=== PATIENT | female | born 1945 | race Caucasian/White ===

== ENCOUNTER 2017-07-14 13:21 | Outpatient (CLI) | payer MEDICARE ==
--- NOTE | 2017-07-14 14:21 | MMO ---
BILATERAL SCREENING MAMMOGRAM: HISTORY: A 71-year-old female for screening mammography. COMPARISON: 05/24/16, 05/15/15, 04/20/14. FINDINGS: Bilateral MLO and CC views of the breasts show scattered fibroglandular breast tissue. Architectura l distortion and coarse calcifications are seen in the left breast from a prior surgery. Vascular c alcifications are seen bilaterally. A benign-appearing calcification is also seen in the right [address]. There is no evidence of suspicious mass, suspicious clustered microcalcifications, or area of n ew architectural distortion. Interpretation of this mammogram is performed with the assistance of computer-aided detection. IMPRESSION: BI-RADS category 2 - benign findings. Annual screening mammography is recommended. POS: [facility]
== END 2017-07-14 13:22 | disposition home or self-care (01) ==
LOC: MAMMO 13:21
PROVIDERS: ATTEND Family Medicine
DX: Z12.31 Encounter for screening mammogram for malignant neoplasm of breast (principal)
CPT/HCPCS: 77067; G0202

== ENCOUNTER 2018-05-14 08:34 | Outpatient (CLI) | payer MEDICARE | END 2018-05-14 08:35 | disposition home or self-care (01) | LOC: BICMRI 08:34 | PROVIDERS: ATTEND Psychiatry & Neurology Neurology | DX: G50.0 Trigeminal neuralgia (principal); G93.89 Other specified disorders of brain | CPT/HCPCS: 70551 ==

== ENCOUNTER 2018-07-15 09:49 | Outpatient (CLI) | payer MEDICARE | END 2018-07-15 09:50 | disposition home or self-care (01) | LOC: BICMAMMO 09:49 | PROVIDERS: ATTEND Family Medicine | DX: Z12.31 Encounter for screening mammogram for malignant neoplasm of breast (principal); Z85.3 Personal history of malignant neoplasm of breast; Z80.3 Family history of malignant neoplasm of breast | CPT/HCPCS: 77063; 77067 ==

== ENCOUNTER 2018-08-31 10:47 | Outpatient (CLI) | payer MEDICARE ==
[2018-08-31 12:44] LABS: #Basophils 0.1 thou/uL (0.0-0.2); #Eosinphils 0.1 thou/uL (0.0-0.7); #Lymphocytes 2.1 thou/uL (1.20-3.40); #Monocytes 0.8 thou/uL (0.11-0.59); #Neutrophils 5.9 thou/uL (1.40-6.50); %Basophils 0.8 % (0.0-1.0); %Eosinophils 0.7 % (0.0-10.0); %Lymphocytes 23.6 % (21.0-51.0); %Monocytes 9.2 % (0.0-10.0); %Neutrophils 65.7 % (42.0-75.0); Hemoglobin 14.5 g/dL (12.0-16.0); Mean Corpuscular HGB CONC 32.5 g/dL (32.0-36.0); Mean Corpuscular Hemoglobin 30.3 pg (27.0-31.0); Mean Corpuscular Volume 93.4 fL (78.0-98.0); Mean Platelet Volume 7.5 fL (7.4-10.4); Platelet Count 279 thou/uL (130-400); RBC Distribution Width 12.5 % (11.5-14.5); Red Blood Cell (RBC) Count 4.78 mill/uL (4.20-5.40); White Blood Cell (WBC) Count 8.9 thou/uL (4.8-10.8)
[2018-08-31 13:30] LABS: Anion Gap 17 mmol/L (10-20); BUN (Urea Nitrogen) 17 mg/dL (9.8-20.1); Calc. Creatinine Clearance 0 mL/min (70-130); Calcium 9.3 mg/dL (7.8-10.44); Carbon Dioxide 21 mmol/L (23-31); Chloride 104 mmol/L (98-107); Estimated GFR-MDRD 69; Glucose 99 mg/dL (83-110); Potassium 4.1 mmol/L (3.5-5.1); Sodium 138 mmol/L (136-145)
--- NOTE | 2018-08-31 14:22 | RAD ---
CHEST PA AND LATERAL TWO VIEWS: History: 72-year-old female with history of pre-operative evaluation. Comparison: 07-06-08 FINDINGS: Surgical clips in the left axilla. Circumscribed calcification in the left breast. Heart size within normal limits. The lungs are clear. No pneumonia, edema, or pleural effusion. IMPRESSION: No acute intrathoracic disease. No evidence for pneumonia or acute edema. POS: [facility]
--- NOTE | 2018-09-01 08:51 | EKG ---
Test Reason : Blood Pressure : / mmHG Vent. Rate : 070 BPM Atrial Rate : 070 BPM P-R Int : 194 ms QRS Dur : 078 ms QT Int : 390 ms P-R-T Axes : 060 -29 039 degrees QTc Int : 421 ms Normal sinus rhythm Minimal voltage criteria for LVH, may be normal variant Possible Anteroseptal infarct , age undetermined Abnormal ECG When compared with ECG of 15-APR-2017 15:44, Borderline criteria for Anteroseptal infarct are now Present Nonspecific T wave abnormality has replaced inverted T waves in Inferior leads Confirmed by DR. Brijesh FAYE ([id number]) on 09/01/2018 8:51:16 AM Referred By: KENDRA Confirmed By:DR. Brijesh FAYE
== END 2018-08-31 10:48 | disposition home or self-care (01) ==
LOC: LABBT 10:47
PROVIDERS: ATTEND Orthopaedic Surgery Hand Surgery
DX: Z01.818 Encounter for other preprocedural examination (principal); G56.01 Carpal tunnel syndrome, right upper limb
CPT/HCPCS: 71046; 80048; 85025; 93005; 93010

== ENCOUNTER 2018-09-01 05:46 | Day surgery (SDC) | payer MEDICARE ==
[2018-08-31 11:19] VITALS: BMI 31.7
[2018-09-01] MEDS ORDERED: Bupivacaine HCl 0.5%/Epinephrine 1:200,000/PF 30 ml Vial ONE (06:31)
[2018-09-01] MEDS ORDERED: Sodium Chloride 0.9% 0 ML ONE (06:31)
[2018-09-01] MEDS ORDERED: Bacitracin Zinc Ointment 30 gm TUBE ONE (06:31)
[2018-09-01] MEDS ORDERED: Fentanyl 100 MCG/2 ML VIAL ONE (06:44)
[2018-09-01] MEDS ORDERED: Bupivacaine PF 0.5% 30 ML VIAL ONE (06:45)
[2018-09-01] MEDS ORDERED: Betamet Acet/Betamet Na Ph 30 MG/5 ML VIAL ONE (06:46)
[2018-09-01] MEDS ORDERED: CEFAZOLIN 2 GM/50 ML BAG ONE (06:59)
[2018-09-01] MEDS ORDERED: Ketorolac Tromethamine 30 MG/ML VIAL ONE (08:00)
[2018-09-01] MEDS ORDERED: Ondansetron PF 4 MG/2 ML Vial ONE (16:00)
[2018-09-01] MEDS ORDERED: Dexamethasone 20 MG/5 ML VIAL ONE (16:00)
[2018-09-01] MEDS ORDERED: Lidocaine 1% PF 5 ML VIAL ONE (16:00)
[2018-09-01] MEDS ORDERED: PROPOFOL 200 MG/20 ML VIAL ONE (16:00)
--- NOTE | 2018-09-02 00:43 | OP ---
DATE OF PROCEDURE: 09/01/2018 PREOPERATIVE DIAGNOSIS: Right carpal tunnel syndrome. POSTOPERATIVE DIAGNOSIS: Right carpal tunnel syndrome. PROCEDURES PERFORMED: 1. Celestone drip injection into the carpal canal. 2. Carpal tunnel release, right. FINDINGS: True hourglass formation over 2 cm area with marked flattening and narrowing, erythema and stippling indicative of severe compression under the transverse carpal ligament. BLOOD LOSS: 5 mL TOURNIQUET TIME: 14 minutes. SURGEON: Aneesh Vargas M.D. ANESTHESIA: General LMA technique augmented by a total of 20 mL 0.5% Marcaine, 10 given mireya-incisio nal before the procedure and 10 given after the wound closed. DESCRIPTION OF PROCEDURE: After successful general anesthesia as listed above, the limb was prepped and draped. Timeout was done appropriately. We then injected 10 mL of 0.5% Marcaine in mireya-incisio nal area after the incision was outlined, which ran along the area in line with the ring finger from medial to lateral for distal Carranza's cardinal line for approximately 5 mm distal to the volar wrist flexion crease. We then inflated the tourniquet, exsanguinated the limb, and made an incision along the same and galvan ied through skin and subcutaneous tissue and we visualized transverse carpal ligament just where the palmaris longus insertion occurred. We then entered this area from the midline distally and released the median nerve , we first saw the stippling using a combination of [place] blade and tenotomy scissors. For the mid portion proximal, we did the same release, there was no stippling and the proximal one-adams lf of the median nerve within the canal, but the ligament was completely released without further com pression. There was no tenosynovitis, so no tenosynovectomy was indicated. We placed 3.5 mL of Celestone via drip technique over the nerve area ____ and the narrowing and hourg lass formation and flattening. We released the tourniquet and obtained hemostasis. We closed the incision with interrupted 4-0 nylo n. I gave the last 10 mL of 0.5% Marcaine and applied a bulky dressing with bacitracin under Adaptic , under 4 x 4s, under Kerlix with a small Manuel wrap. There was no complication. The digits were pink .
== END 2018-09-01 09:20 | disposition home or self-care (01) ==
LOC: SDC 05:46
PROVIDERS: ATTEND Orthopaedic Surgery Hand Surgery
PROC: 01N50ZZ Release Median Nerve, Open Approach (ICD-10-PCS; principal; 2018-09-01)
DX: G56.03 Carpal tunnel syndrome, bilateral upper limbs (principal); E78.5 Hyperlipidemia, unspecified; F41.9 Anxiety disorder, unspecified; M18.11 Unilateral primary osteoarthritis of first carpometacarpal joint, right hand; I10 Essential (primary) hypertension; G47.33 Obstructive sleep apnea (adult) (pediatric); K21.9 Gastro-esophageal reflux disease without esophagitis; M54.12 Radiculopathy, cervical region; M48.02 Spinal stenosis, cervical region; E66.3 Overweight; Z68.31 Body mass index [BMI] 31.0-31.9, adult; Z79.1 Long term (current) use of non-steroidal anti-inflammatories (NSAID); Z79.899 Other long term (current) drug therapy; Z99.89 Dependence on other enabling machines and devices; Z88.2 Allergy status to sulfonamides
CPT/HCPCS: 96372; J0670; J0702; J1100; J1885; J2001; J2405; J2704; J3010; J3490; S0020

== ENCOUNTER 2018-09-17 09:05 | Outpatient (CLI) | payer MEDICARE ==
--- NOTE | 2018-09-17 11:17 | MRI ---
MRI CERVICAL SPINE: HISTORY: Cervical radiculopathy FINDINGS: Multiplanar, multisequence, noncontrast-enhanced MRI images of cervical spine obtained. The patient has a history of bilateral arm pain for 2-3 years. Images demonstrate some motion artifact which does degrade the quality of this exam. C1-2: Unremarkable. C2-3: Unremarkable. C3-4: There is no significant evidence of central stenosis seen. The neural foramen are patent. C4-5: Disk desiccation is seen. There is a minimal broad-based disk-osteophyte complex. No signifi cant degree of central stenosis seen. Moderate degree of left C4-5 neural foraminal narrowing is see n due to uncovertebral osteophyte hypertrophy. The right neural foramen is patent. C5-6: Disk desiccation is seen. There is a broad-based disk-osteophyte complex centrally compressin g the thecal sac resulting in a moderate degree of central lateral recess stenosis. There is mild bi lateral C5-6 neural foraminal narrowing due to uncovertebral osteophyte hypertrophy. C6-7: Disk desiccation is seen. There is irregularity involving the inferior end plate of C6 and zhong perior end plate of C7. There is a broad-based disk-osteophyte complex centrally compressing the the peter sac resulting in a moderate to severe degree of central and lateral recess stenosis. There is mo derate to severe right and mild left C6-7 neural foraminal narrowing due to uncovertebral osteophyte hypertrophy. C7-T1: Disk desiccation is seen. There is a broad-based disk-osteophyte complex compressing the the peter sac. No significant degree of central stenosis seen. Mild bilateral neural foraminal narrowing is seen. C7-T1: Disk desiccation is seen. There is a broad-based disk bulge resulting in mild but not signif icant degree of central stenosis. The neural foramen are patent. IMPRESSION: Disk degeneration and disk space height loss with central stenosis at C4-5, C5-6, C6-7, and minimally at C7-T1. Neural foraminal narrowing is also present as described above. No obvious evidence of sp inal cord signal abnormality is seen. POS: [facility]
== END 2018-09-17 09:06 | disposition home or self-care (01) ==
LOC: BICMRI 09:05
PROVIDERS: ATTEND Orthopaedic Surgery Hand Surgery
DX: M48.02 Spinal stenosis, cervical region (principal); M50.121 Cervical disc disorder at C4-C5 level with radiculopathy; M48.03 Spinal stenosis, cervicothoracic region
CPT/HCPCS: 72141

== ENCOUNTER 2019-03-08 01:15 | Outpatient (CLI) | payer MEDICARE ==
[2019-03-08 15:24] LABS: #Basophils 0.1 thou/uL (0.0-0.2); #Eosinphils 0.3 thou/uL (0.0-0.7); #Lymphocytes 2.6 thou/uL (1.20-3.40); #Monocytes 0.6 thou/uL (0.11-0.59); #Neutrophils 5.7 thou/uL (1.40-6.50); %Basophils 0.6 % (0.0-1.0); %Eosinophils 3.1 % (0.0-10.0); %Lymphocytes 28.2 % (21.0-51.0); %Monocytes 6.8 % (0.0-10.0); %Neutrophils 61.3 % (42.0-75.0); Hemoglobin 14.2 g/dL (12.0-16.0); Mean Corpuscular HGB CONC 32.8 g/dL (32.0-36.0); Mean Corpuscular Hemoglobin 30.6 pg (27.0-31.0); Mean Corpuscular Volume 93.1 fL (78.0-98.0); Mean Platelet Volume 8.1 fL (7.4-10.4); Platelet Count 252 thou/uL (130-400); RBC Distribution Width 12.3 % (11.5-14.5); Red Blood Cell (RBC) Count 4.64 mill/uL (4.20-5.40); White Blood Cell (WBC) Count 9.3 thou/uL (4.8-10.8)
--- NOTE | 2019-03-10 11:58 | EKG ---
Test Reason : Blood Pressure : / mmHG Vent. Rate : 060 BPM Atrial Rate : 060 BPM P-R Int : 198 ms QRS Dur : 088 ms QT Int : 418 ms P-R-T Axes : 042 -34 020 degrees QTc Int : 418 ms Normal sinus rhythm Left axis deviation Abnormal ECG When compared with ECG of 31-AUG-2018 11:53, Borderline criteria for Anteroseptal infarct are no longer Present Confirmed by DR. Brijesh FAYE ([id number]) on 03/10/2019 11:58:00 AM Referred By: KENDRA Confirmed By:DR. Brijesh FAYE
== END 2019-03-08 01:16 | disposition home or self-care (01) ==
LOC: LABBT 01:15
PROVIDERS: ATTEND Orthopaedic Surgery Hand Surgery
DX: Z01.818 Encounter for other preprocedural examination (principal); G56.02 Carpal tunnel syndrome, left upper limb
CPT/HCPCS: 85025; 93005; 93010

== ENCOUNTER 2019-03-09 09:58 | Day surgery (SDC) | payer MEDICARE ==
[2019-03-08 14:38] VITALS: BMI 31.4
[2019-03-09] MEDS ORDERED: Lidocaine 1% PF 5 ML VIAL ONE (13:34)
[2019-03-09] MEDS ORDERED: PROPOFOL 200 MG/20 ML VIAL ONE (13:34)
[2019-03-09] MEDS ORDERED: Ondansetron PF 4 MG/2 ML Vial ONE (13:34)
[2019-03-09] MEDS ORDERED: Ketorolac Tromethamine 30 MG/ML VIAL ONE (13:34)
[2019-03-09] MEDS ORDERED: Sodium Chloride 0.9% 0 ML ONE (13:38)
[2019-03-09] MEDS ORDERED: Bupivacaine PF 0.5% 30 ML VIAL ONE (13:38)
[2019-03-09] MEDS ORDERED: Betamet Acet/Betamet Na Ph 30 MG/5 ML VIAL ONE (13:39)
[2019-03-09] MEDS ORDERED: Bacitracin Zinc Ointment 30 gm TUBE ONE (13:41)
--- NOTE | 2019-03-09 22:01 | OP ---
DATE OF PROCEDURE: 03/09/2019 PREOPERATIVE DIAGNOSIS: Left carpal tunnel syndrome. POSTOPERATIVE DIAGNOSIS: Left carpal tunnel syndrome. FINDINGS: Stippling with hourglass formation of 1 cm area in the center of the transverse carpal ligament region of the wrist. PROCEDURES PERFORMED: 1. Left carpal tunnel release. 2. Celestone drip technique injection, steroids, carpal tunnel intraoperatively under direct visualization. SPECIMENS REMOVED: None. ESTIMATED BLOOD LOSS: 5 mL. TOURNIQUET TIME: 14 minutes. INDICATION: The patient had failed conservative treatment and had carpal tunnel syndrome clinically on both sides. In 2018, she had a right carpal tunnel release with excellent results and now has clinically even some more significant carpal tunnel syndrome without nonoperative relief. DESCRIPTION OF PROCEDURE: After successful general LMA technique, the limb was prepped and draped. The patient had the time-out done appropriately, we outlined a standard carpal tunnel mini incision beginning 5 mm distal to the volar wrist flexion crease and coursing the Carranza cardinal line in line with the ring finger. With exsanguinating the tourniquet up, we made an incision in the midline in these parameters described above just short of Carranza cardinal line. The incision was carried through skin and subcutaneous tissue until we saw the transverse carpal ligament and in the middle of the transverse carpal ligament, we made a small hole to determine a more relative nerve. With excellent position ulnar to it, so we then dissected distally and protected neurovascular bundle to include the arch and distal portion of the ulnar neurovascular bundle and under direct visualization with combination of [place] blade and tenotomy scissors, we released the distal one-half. We then reversed our field of vision, the deep and subcutaneous skin from the proximal half of the transverse carpal ligament and released under direct visualization with combination of [place] blade and tenotomy scissors. Deflated tourniquet. Obtained hemostasis, then placed 3 mL of Celestone along the nerve where the stippling was located. We then closed the incision with interrupted 4-0 nylon in mattress pattern, gave an additional 10 mL of 0.5% Marcaine and the patient left the operating room without evidence of anesthetic or operative complications. Job ID: [id number]
== END 2019-03-09 16:27 | disposition home or self-care (01) ==
LOC: SDC 09:58
PROVIDERS: ATTEND Orthopaedic Surgery Hand Surgery
PROC: 01N50ZZ Release Median Nerve, Open Approach (ICD-10-PCS; principal; 2019-03-09)
DX: G56.02 Carpal tunnel syndrome, left upper limb (principal); I10 Essential (primary) hypertension; E78.5 Hyperlipidemia, unspecified; F41.9 Anxiety disorder, unspecified; M19.90 Unspecified osteoarthritis, unspecified site; G47.33 Obstructive sleep apnea (adult) (pediatric); K21.9 Gastro-esophageal reflux disease without esophagitis; Z79.899 Other long term (current) drug therapy; Z99.89 Dependence on other enabling machines and devices
CPT/HCPCS: J0690; J0702; J3490; S0020

== ENCOUNTER 2019-04-01 13:50 | Outpatient (CLI) | payer MEDICARE ==
--- NOTE | 2019-04-01 14:12 | RAD ---
XR Foot Lt 3 View STANDARD History: Unspecified osteoarthritis Comparison: None. Findings: Severe degenerative disease of the great toe metatarsophalangeal joint with exuberant osteo phyte formation, complete joint space loss, and subcortical cysts. Mild midfoot degenerative disease. No acute fracture or malalignment. There are plantar and dorsal calcaneal spurs. Impression: Severe osteoarthritic disease of the great toe metatarsal phalangeal joint.
== END 2019-04-01 13:51 | disposition home or self-care (01) ==
LOC: BICRAD 13:50
PROVIDERS: ATTEND Podiatrist
DX: M19.072 Primary osteoarthritis, left ankle and foot (principal)

== ENCOUNTER 2019-09-22 14:55 | Outpatient (CLI) | payer MEDICARE ==
--- NOTE | 2019-09-22 12:08 | MMO ---
Bilateral MAMMO Bilat Screen [facility]. CLINICAL HISTORY: Patient is 73 years old and is seen for screening. The patient has a history of malignant (generic) in the left breast in 2001. The patient has a history of left Excisional Biopsy at age 54 - malignant. VIEWS: The views performed were: bilateral craniocaudal with tomosynthesis and bilateral mediolateral oblique with tomosynthesis. FILMS COMPARED: The present examination has been compared to prior imaging studies performed at [facility] on 05/15/2015, 05/24/2016, 07/14/2017 and 07/15/2018. This study has been interpreted with the assistance of computer-aided detection. MAMMOGRAM FINDINGS: There are scattered fibroglandular densities. Finding 1: There are stable benign appearing calcifications seen in both breasts. There are no suspicious masses, calcifications or areas of architectural distortion. Finding 2: There are stable post operative changes seen in the left breast. There are no suspicious masses, suspicious calcifications, or new areas of architectural distortion. IMPRESSION: THERE IS NO MAMMOGRAPHIC EVIDENCE OF MALIGNANCY. A ROUTINE FOLLOW-UP MAMMOGRAM IN 1 YEAR IS RECOMMENDED. THE RESULTS OF THIS EXAM WERE SENT TO THE PATIENT. ACR BI-RADS Category 2 - Benign finding MAMMOGRAPHY NOTE: 1. A negative mammogram report should not delay a biopsy if a dominant of clinically suspicious mass is present. 2. Approximately 10% to 15% of breast cancers are not detected by mammography. 3. Adenosis and dense breasts may obscure an underlying neoplasm. Reported by: ARIE DUMAS MD Electonically Signed: [id number]
== END 2019-09-22 14:56 | disposition home or self-care (01) ==
LOC: BICMAMMO 14:55
PROVIDERS: ATTEND Family Medicine
DX: Z12.31 Encounter for screening mammogram for malignant neoplasm of breast (principal); Z85.3 Personal history of malignant neoplasm of breast
CPT/HCPCS: 77063; 77067

== ENCOUNTER 2019-10-04 09:02 | Outpatient (CLI) | payer MEDICARE ==
--- NOTE | 2019-10-04 09:35 | BD ---
EXAM: Bone densitometry using DEXA HISTORY: 73 yo female. Screening for postmenopausal osteoporosis, other disorders of bone density and structur e, unspecified FINDINGS: L1--bone mineral density 0.879 g/sq cm; T score -1.0 ; Z score 1.0 L2--bone mineral density 0.933 g/sq cm; T score -0.9 ; Z score 1.4 L3--bone mineral density 1.125 g/sq cm; T score 0.4 ; Z score 2.7 L4--bone mineral density 1.152 g/sq cm; T score 0.8 ; Z score 3.3 Total L1-L4--bone mineral density 1.037 g/sq cm; T score -0.1 ; Z score 2.2 Left femoral neck--bone mineral density0.779; T score -0.6 ; Z score 1.3 Total proximal left femur--bone mineral density 1.000; T score 0.5 ; Z score 2.1 IMPRESSION: No evidence of osteopenia/osteoporosis.
== END 2019-10-04 09:03 | disposition home or self-care (01) ==
LOC: BICMAMMO 09:02
PROVIDERS: ATTEND Family Medicine
DX: M85.80 Other specified disorders of bone density and structure, unspecified site (principal)
CPT/HCPCS: 77080

== ENCOUNTER 2019-11-12 13:54 | Outpatient (CLI) | payer MEDICARE ==
--- NOTE | 2019-11-12 14:14 | RAD ---
EXAM: 4 views of the lumbosacral spine HISTORY: Low back pain COMPARISON: None FINDINGS: 4 views of the lumbosacral spine shows moderate scoliotic curvature of the lumbar spine. In tervertebral discs are narrowed and moderate osteophytes are seen throughout the lumbar spine. There is grade 1 anterolisthesis of L4 on L5. Alignment is unchanged with flexion and extension. The sacroiliac joints are unremarkable. IMPRESSION: Scoliosis and degenerative changes of the lumbar spine with unchanged alignment with bend ing.
== END 2019-11-12 13:55 | disposition home or self-care (01) ==
LOC: BICRAD 13:54
PROVIDERS: ATTEND Neurological Surgery
DX: M41.9 Scoliosis, unspecified (principal); M47.816 Spondylosis without myelopathy or radiculopathy, lumbar region
CPT/HCPCS: 72110

== ENCOUNTER 2020-01-03 07:19 | Outpatient (CLI) | payer MEDICARE ==
[2020-01-03 11:47] LABS: Hemoglobin 13.8 g/dL (12.0-16.0); Mean Corpuscular HGB CONC 32.5 g/dL (32.0-36.0); Mean Corpuscular Volume 95.4 fL (78.0-98.0); Mean Platelet Volume 7.3 fL (7.4-10.4); Platelet Count 341 thou/uL (130-400); RBC Distribution Width 12.9 % (11.5-14.5); Red Blood Cell (RBC) Count 4.46 mill/uL (4.20-5.40); White Blood Cell (WBC) Count 6.7 thou/uL (4.8-10.8)
[2020-01-03 11:53] LABS: INR-International Normal Ratio 0.9; PTT 27.7 SEC (22.9-36.1); Prothrombin Time 12.6 SEC (12.0-14.7)
[2020-01-03 12:22] LABS: Anion Gap 15 mmol/L (10-20); BUN (Urea Nitrogen) 9 mg/dL (9.8-20.1); Calc. Creatinine Clearance 0 mL/min (70-130); Calcium 9.5 mg/dL (7.8-10.44); Carbon Dioxide 24 mmol/L (23-31); Chloride 103 mmol/L (98-107); Estimated GFR-MDRD 78; Glucose 101 mg/dL (83-110); Potassium 3.7 mmol/L (3.5-5.1); Sodium 138 mmol/L (136-145)
--- NOTE | 2020-01-04 11:37 | EKG ---
Test Reason : Blood Pressure : / mmHG Vent. Rate : 073 BPM Atrial Rate : 073 BPM P-R Int : 162 ms QRS Dur : 076 ms QT Int : 390 ms P-R-T Axes : 025 -03 049 degrees QTc Int : 429 ms Normal sinus rhythm Septal infarct , age undetermined Abnormal ECG When compared with ECG of 08-MAR-2019 15:10, No significant change was found Confirmed by VLAD MACDONALD, DR. Kwon ([id number]) on 01/04/2020 11:37:19 AM Referred By: ELIZABETH Confirmed By:DR. Cher CHU MD
== END 2020-01-03 07:20 | disposition home or self-care (01) ==
LOC: LABBT 07:19
PROVIDERS: ATTEND Neurological Surgery
DX: Z01.818 Encounter for other preprocedural examination (principal); M51.16 Intervertebral disc disorders with radiculopathy, lumbar region
CPT/HCPCS: 80048; 85027; 85610; 85730; 93005; 93010

== ENCOUNTER 2020-01-06 10:13 | Day surgery (SDC) | payer MEDICARE ==
[2020-01-03 09:31] VITALS: BMI 29.2
--- NOTE | 2020-01-05 18:37 | HP ---
DATE OF SURGERY: 01/06/20. Case #[id number]. CHIEF COMPLAINT: "I am here for back surgery." HISTORY OF PRESENT ILLNESS: Ms Paredes is a 74-year-old female with right leg and thigh pain. She was seen by Dr. Estrella prior to having back surgery. The transforaminal epidural spinal injection on the right side at L2-3 did not help as much as we might have hoped and therapy made her pain worse. She states she is ready for surgical. 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 SURGICAL HISTORY: Hysterectomy-BSO in 1995, left lumpectomy 2000, EGD for GERD in 2007, colonoscopy normal in 2012, laparoscopic cholecystectomy on 04/23/2017. HOSPITALIZATION HISTORY: x3, 1969, 1971, 1972. FAMILY HISTORY: Father , stroke, hypertension, at age 62, diagnosed with hypertension. Mother , hypertension. Siblings alive, thyroid disease. Son alive, none. Daughter alive, none. Two sisters, two sons, one daughter, healthy. SOCIAL HISTORY: Nonsmoker. Lives with spouse. Does not drink alcohol. Does not use illicit drugs. MEDICATIONS: Taking 1. Alprazolam 0.25 mg. 2. Simvastatin 10 mg. 3. Bisoprolol and HCTZ 2.5/6.25 mg. 4. Nexium 40 mg. 5. Gabapentin 300 mg. 6. Naproxen 500 mg. 7. CPAP is set at 5 to 7 with heated humidified every night. 8. Vitamin B12. 9. Tizanidine 2 mg. 10. Acetaminophen and codeine #4, 300 mg/60 mg. ALLERGIES: SULFA, ANAPHYLAXIS. REVIEW OF SYSTEMS: CONSTITUTION: Denies fever, chills. ENT: Denies change of vision or hearing. CARDIAC: Denies chest pain, shortness of breath, diaphoresis. PULMONARY: Denies shortness of breath, cough, hemoptysis. GI: Denies abdominal pain, nausea, vomiting, diarrhea, change in stool formation and consistency. : Denies trouble with urination, frequency of urine, urination, blood in urine. SKIN: Denies skin rash, bruising, bleeding, skin masses. MUSCULOSKELETAL: As per history of present illness. NEUROLOGIC: As per history of present illness. PSYCHOLOGIC: Denies anxiety, depression, behavior changes, or crying. PHYSICAL EXAMINATION: VITALS: Weight 170, height 61.5. HEENT: Pupils are equal. Extraocular movements are intact. NECK: Soft, supple. No masses are noted. Range of motion is intact and nonpainful. NEUROLOGIC: Awake, alert, and oriented x3. Memory, attention, fund of knowledge normal. Cranial nerves grossly intact. Lower extremity gait and station and antalgic, keeps weight off right leg. Motor exam, weak IP-Q on the right compared to the left. Distal muscles with some give-away from pain. Sensory exam, loss of the right L3 and L5 sensation compared to the left. Lower extremity examination orthopedic (no groin pain with hip flexion and internal rotation). Reflex exam, hypoactive but symmetric knees and ankles. No clonus. No Babinski. IMAGING: MRI, scoliotic curve anterolisthesis, L4-5. Stenosis L3-4, L4-5, but no new compared to 2016. L2-3 HNP on the right with inferior migration under the L3 root. Good size. Flex, extension views at L4-5, listhesis is grade 1 or 2, borderline. Does not move much in the flex-ex lateral bending. There is some motion at L1-2, L2-3. ASSESSMENT: 1. 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 2. 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 3. Other forms of scoliosis in lumbar region. 4. Spondylolisthesis in the lumbar region. PLAN: 1. Chronic issues, listhesis at L4-5, scoliosis at L1-4. 2. Acute issue, L2-3, HNP, surgery microdiscectomy or a microdiscectomy plus laminectomy or microdiscectomy plus laminectomy plus fusion or scoliosis surgery. Of these, we agree on right L2-3 microdiscectomy and plan for more surgery only if necessary in the future. 3. Anesthesia clearance Informed consent: We discussed the indications, risks, benefits, alternatives, and expected results from surgery. The risks discussed included, but were not limited to, bleeding, infection, CSF leak, nerve damage weakness incontinence, cauda equina injury, paralysis, ventilator dependency, wheelchair dependency, loss of vision, cardiopulmonary complications of anesthesia or . Long-term complications discussed included, but were not limited to, spinal instability and future surgery. She understands the risk and is willing to proceed. Job ID: [id number] MTDD
[~2020-01-06 10:13] MED LIST: Dexamethasone 20 MG/5 ML VIAL ONE; EPHEDRINE 25 MG/5 ML SYRINGE ONE; Glycopyrrolate 0.2 MG/ML 5 ML SYRINGE ONE; Lidocaine 1% PF 5 ML VIAL ONE; Ondansetron PF 4 MG/2 ML Vial ONE; PROPOFOL 200 MG/20 ML VIAL ONE; Rocuronium Bromide 10 MG/ML (10ML VIAL) ONE; Succinylcholine Chloride 20 MG/ML 10 ml SYRINGE FS ONE
[2020-01-06] MEDS ORDERED: Bupivacaine PF 0.5% 30 ML VIAL ONE (11:48)
[2020-01-06] MEDS ORDERED: Thrombin 5000 UNITS/5 ML VIAL ONE (11:48)
[2020-01-06] MEDS ORDERED: EPINEPHrine 1 MG/ML AMP ONE (11:48)
[2020-01-06] MEDS ORDERED: Lidocaine 2% Jelly 5 ML TUBE ONE (12:01)
[2020-01-06] MEDS ORDERED: Fentanyl 100 MCG/2 ML VIAL ONE ×3 (12:01→15:00)
--- NOTE | 2020-01-06 15:43 | OP ---
DATE OF PROCEDURE: 01/06/2020 AIRCRAFT INSPECTOR: Kip Ocasio PA-C PREOPERATIVE INDICATION: Treat pain and prevent neurological deterioration. PREOPERATIVE DIAGNOSIS: Right-sided L2-L3 intervertebral disk herniation with L3 radiculopathy. POSTOPERATIVE DIAGNOSIS: Right-sided L2-L3 intervertebral disk herniation with L3 radiculopathy. PROCEDURES PERFORMED: Right L2-L3 partial hemilaminectomy, medial facetectomy, foraminotomy and microdiskectomy, operating microscope. PREOPERATIVE MEDICATIONS: Ancef 2 g IV. DRAIN NUMBER: Zero. DRAIN TYPE: None. DESCRIPTION OF PROCEDURE: The patient was brought to the operating room. General endotracheal anesthesia was induced. The patient was positioned prone on the operating table with her chest and hips supported by gel-filled chest rolls. A lateral fluoro radiograph was used to plan our incision. The lumbar skin was sterilely prepped and draped. We opened with a 10 blade knife, and we controlled bleeding with bipolar and monopolar cautery. We used monopolar cautery to dissect through subcutaneous tissues to the thoracodorsal fascia. We incised the fascia on the right side of the midline and reflected paraspinal muscles off the spinous process and lamina of L2 and L3 on the right. A self-retaining retractor was placed and a lateral fluoro radiograph confirmed the levels upon which we were operating. We then used [place] rongeurs to fashion a hemilaminectomy at L2 and L3 on the right and performed medial facetectomy. We removed the yellow ligament and then brought the operating microscope into the field. Under microscopic magnification and using microsurgical techniques, we carefully dissected above and below the disk space and in the axilla and over the shoulder of the L3 nerve root. In the ventral epidural space, stretching of the L3 nerve root with some loose disk material. We incised the lateral edge of that disk and removed loose fragments of disk with a blunt hook and pituitary rongeurs. At the completion of our diskectomy, we could pass the probes in the ventral epidural space under the L3 nerve root without any impingement. A ball probe was passed through the lateral recess and out the foramen with the nerve and found no other stenosis. We irrigated with bacitracin irrigation. We infused local anesthetic in the paraspinal muscles. We closed the wound in anatomical layers. We applied a sterile dressing. This was a clean case, no contamination. Job ID: [id number]
[2020-01-06] MEDS ORDERED: traMADol HCl 50 MG TAB ONE (17:01)
== END 2020-01-06 18:15 | disposition home or self-care (01) ==
LOC: SDC 10:13
PROVIDERS: ATTEND Neurological Surgery
PROC: 0SB20ZZ Excision of Lumbar Vertebral Disc, Open Approach (ICD-10-PCS; principal; 2020-01-06)
DX: M51.16 Intervertebral disc disorders with radiculopathy, lumbar region (principal); M43.16 Spondylolisthesis, lumbar region; M41.116 Juvenile idiopathic scoliosis, lumbar region; M41.86 Other forms of scoliosis, lumbar region; E78.5 Hyperlipidemia, unspecified; I10 Essential (primary) hypertension; G47.33 Obstructive sleep apnea (adult) (pediatric); K21.9 Gastro-esophageal reflux disease without esophagitis; M19.90 Unspecified osteoarthritis, unspecified site; Z79.1 Long term (current) use of non-steroidal anti-inflammatories (NSAID); Z79.899 Other long term (current) drug therapy; Z88.2 Allergy status to sulfonamides; Z99.89 Dependence on other enabling machines and devices
CPT/HCPCS: 76000; J0171; J0690; J1100; J2001; J2405; J2704; J3010; J3370; J3490; S0020

== ENCOUNTER 2020-01-31 21:28 | Observation (INO) | payer MEDICARE ==
--- NOTE | 2020-01-31 22:08 | RAD ---
Chest one view HISTORY: Fever. COMPARISON: 08/31/2018. FINDINGS: Cardiac silhouette and pulmonary vasculature are unremarkable. Mediastinum is midline. Ill-defined parenchymal opacity projects at the right suprahilar level. No evidence of pneumothorax. Metallic clips overlie the left axilla. IMPRESSION : Right suprahilar infiltrate. Clinical correlation regarding other signs and symptoms of right upper l obe pneumonitis/pneumonia is required. Please consider radiographic follow-up after medical treatment to evaluate for clearing.
[2020-01-31 22:39] LABS: Hemoglobin 13.3 g/dL (12.0-16.0); Mean Corpuscular HGB CONC 33.3 g/dL (32.0-36.0); Mean Corpuscular Hemoglobin 31.9 pg (27.0-31.0); Mean Corpuscular Volume 95.8 fL (78.0-98.0); RBC Distribution Width 12.4 % (11.5-14.5); Red Blood Cell (RBC) Count 4.16 mill/uL (4.20-5.40)
[2020-01-31 22:45] LABS: Band 25 % (5-11); Lymphocytes 5 % (21-51); MDiff Complete? YES; Mean Platelet Volume 7.3 fL (7.4-10.4); Monocytes 5 % (0-10); Neutrophil 65 % (42-75); Platelet Count 255 thou/uL (130-400); White Blood Cell (WBC) Count 24.8 thou/uL (4.8-10.8)
[2020-01-31 22:53] LABS: ALT (SGPT) 36 U/L (8-55); AST (SGOT) 38 U/L (5-34); Albumin 3.9 g/dL (3.4-4.8); Alkaline Phosphatase 70 U/L (40-110); Anion Gap 15 mmol/L (10-20); BUN (Urea Nitrogen) 13 mg/dL (9.8-20.1); Bilirubin, Total 0.9 mg/dL (0.2-1.2); Calc. Creatinine Clearance 0 mL/min (70-130); Calcium 9.3 mg/dL (7.8-10.44); Carbon Dioxide 24 mmol/L (23-31); Chloride 99 mmol/L (98-107); Estimated GFR-MDRD 64; Globulin 2.5 g/dL (2.4-3.5); Glucose 131 mg/dL (83-110); Potassium 3.8 mmol/L (3.5-5.1); Protein, Total 6.4 g/dL (6.0-8.3); Sodium 134 mmol/L (136-145)
[2020-01-31] MEDS ORDERED: cefTRIAXone\\ROCEPHIN 2 GM VIAL ONE (23:08)
[2020-01-31] MEDS ORDERED: Azithromycin 500 MG VIAL ONE (23:53)
[2020-02-01] MEDS ORDERED: Senokot S 8.6-50 MG TAB PO PRN (00:05)
[2020-02-01] MEDS ORDERED: Acetaminophen 650 MG Suppository PR PRN (00:05)
[2020-02-01] MEDS ORDERED: ALPRAZolam 0.25 MG TAB PO PRN (00:05)
[2020-02-01] MEDS ORDERED: Acetaminophen/Codeine 30-300mg Tablet PO PRN (00:05)
[2020-02-01] MEDS ORDERED: Guaifenesin DM 100-10/5 ML UDCUP PO PRN (00:05)
[2020-02-01] MEDS ORDERED: Ondansetron PF 4 MG/2 ML Vial IVP PRN (00:05)
[2020-02-01] MEDS ORDERED: Ondansetron ODT 4 MG TAB PO PRN (00:05)
--- NOTE | 2020-02-01 00:51 | HP ---
PRIMARY CARE PHYSICIAN: Prashant Payne MD CHIEF COMPLAINT: Fever. HISTORY OF PRESENT ILLNESS: This is a 74-year-old white female with a past medical history of mild hypertension and recent lumbar laminectomy done 3 weeks ago. The patient reports that ever since the surgery she had some little twinging pains on and off in her right chest, not necessarily associated with movement or with any particular instigating factors. Otherwise, she just felt a little bit mildly nauseated like she was not very hungry most of the time and has lost about 10 pounds since the surgery. Her symptoms were pain radiating down the right leg are unchanged at this point. Then starting 2 days ago, she started developing high fevers with shaking chills, fever up to 102. She did call Dr. Doty's office today and he told her to go into the emergency room. In the ER, she was found to have an elevated white blood cell count and elevated lactic acid and a right perihilar pneumonia on chest x-ray. She was given IV fluids, antibiotics and is being admitted to the hospital. The patient denies any recent sick contacts and has no known COVID exposures. REVIEW OF SYSTEMS: CONSTITUTIONAL: See HPI. EYES: No double vision or blurred vision. ENT: No congestion, drainage, or sore throat. Her throat has felt a little irritated on and off for the last couple of weeks because she had stopped her PPI that she normally takes because she was concerned about taking it with so many other medications. CARDIOVASCULAR: Chest pains as per HPI. No palpitations or racing heart. PULMONARY: No coughing, no wheezing, no shortness of breath. GASTROINTESTINAL: See HPI. No vomiting. No abdominal pain. No diarrhea or constipation. GENITOURINARY: No dysuria or hematuria. MUSCULOSKELETAL: She has some chronic low back pain radiating down her right hip and leg that is unchanged. No new musculoskeletal complaints. SKIN: No rashes or lesions she has noted. NEUROLOGIC: No numbness, tingling, or focal weakness. PAST MEDICAL HISTORY: 1. Hypertension. 2. Hyperlipidemia. 3. Breast cancer, status post left lumpectomy back in 2000. 4. Left-sided trigeminal neuralgia. 5. Gastroesophageal reflux disease. 6. Obstructive sleep apnea, on CPAP. 7. Arthritis. 8. Previous Ashley's palsy. 9. Overactive bladder. PSYCHIATRIC HISTORY: Positive for anxiety. PAST SURGICAL HISTORY: Positive for hysterectomy with bilateral salpingo-oophorectomy, left breast lumpectomy, EGD for gastroesophageal reflux disease, normal colonoscopy in 2013, and a laparoscopic cholecystectomy in 2017. SOCIAL HISTORY: No tobacco, alcohol, or illicit drug use. She lives with her , who is her medical decision maker should she be incapacitated, his name is Jose Paredes. She is a full code. FAMILY HISTORY: Positive for hypertension and stroke in her father, who of the stroke at age 62. Mother had hypertension and is . She has a sibling alive with thyroid disease. ALLERGIES: SULFA, ANTIBIOTICS. CURRENT MEDICATIONS: 1. Alprazolam 0.25 mg 1/2 to 1 tablet as needed, she takes this rarely. 2. Gabapentin 300 mg twice a day. 3. Acetaminophen with Codeine, 1 tablet every 6 hours as needed for pain. She has not been taking this recently. 4. Bisoprolol/hydrochlorothiazide 2.5/6.25 mg one tablet daily. 5. Simvastatin 10 mg daily. 6. Tizanidine 2 mg 1 to 2 tablets every 8 hours as needed. PHYSICAL EXAMINATION: VITAL SIGNS: Blood pressure 149/87, pulse 76, respirations 17, O2 saturation 96% on room air, and temperature 98.4. GENERAL: This is a well-developed, well-nourished white female, in no acute distress. HEENT: Pupils are equal, round, and reactive to light. Oropharynx clear without lesions, erythema, or exudate. NECK: Supple. No lymphadenopathy. No thyroid nodules or enlargement. HEART: Regular rate and rhythm. No murmurs, rubs, or gallops. LUNGS: The patient has some very mild bibasilar crackles. No rhonchi. No rubs. Good air movement throughout. No increased work of breathing. ABDOMEN: Soft, nontender to palpation. Normoactive bowel sounds. No hepatosplenomegaly or other masses. EXTREMITIES: No clubbing, cyanosis, or edema. SKIN: No rashes or lesions noted. NEUROLOGIC: The patient has intact strength and sensation in all extremities. No facial droop. PSYCHIATRIC: Alert and oriented x3. Normal mood and affect. LABORATORY DATA: White blood cell count 18577 with 25% bands, normal hemoglobin, hematocrit, and platelet counts. Complete metabolic panel is notable for a sodium of 134, glucose of 131, AST of 38. C-reactive protein of 10. The rest was normal. Lactic acid was elevated at 3.1. Chest x-ray, I did review the chest x-ray done in the emergency room along with the radiologist's report showing right perihilar superior lobe infiltrate consistent with a lobar pneumonia. ASSESSMENT: 1. Acute lobar bacterial pneumonia. We will continue Rocephin and azithromycin started in the emergency room. Blood cultures have been done and are pending. The patient does not have any evidence of COVID infection. Her chest x-ray is not consistent with a viral pneumonitis and she has no COVID contacts, so no test has been sent at this time. 2. Sepsis without any evidence of hypotension. The patient received a liter of normal saline in the emergency room and a repeat lactic acid is pending. If it is still elevated, we can give her another liter of fluid. We will continue antibiotics and monitor her on the medical floor. 3. Hypertension. Resume patient's antihypertensives. 4. Hyperlipidemia. Resume patient's statin. 5. Gastroesophageal reflux disease. We will start patient on Protonix daily. 6. Deep venous thrombosis prophylaxis. Put the patient on Lovenox subcu. CODE STATUS: The patient is a full code. Should she be incapacitated, her will be her medical decision maker. His name is Jose Paredes. Job ID: [id number]
[2020-02-01] MEDS: tiZANidine HCl 4 MG TAB PO PRN ×3 (01:07→16:18)
[2020-02-01] MEDS: Acetaminophen 325 MG TAB PO PRN ×2 (01:07→14:52)
[2020-02-01 01:14] VITALS: BMI 29.0
[2020-02-01 01:40] LABS: Lactic Acid 1.4 mmol/L (0.5-2.2)
[2020-02-01 05:48] LABS: #Lymphocytes 3.1 thou/uL (1.20-3.40); #Monocytes 1.5 thou/uL (0.11-0.59); #Neutrophils 14.3 thou/uL (1.40-6.50); %Basophils 0.2 % (0.0-1.0); %Eosinophils 0.1 % (0.0-10.0); %Lymphocytes 16.4 % (21.0-51.0); %Monocytes 8.1 % (0.0-10.0); %Neutrophils 75.3 % (42.0-75.0); Hemoglobin 11.2 g/dL (12.0-16.0); Mean Corpuscular HGB CONC 32.7 g/dL (32.0-36.0); Mean Corpuscular Hemoglobin 31.2 pg (27.0-31.0); Mean Corpuscular Volume 95.2 fL (78.0-98.0); Mean Platelet Volume 7.4 fL (7.4-10.4); Platelet Count 222 thou/uL (130-400); RBC Distribution Width 12.4 % (11.5-14.5); White Blood Cell (WBC) Count 18.9 thou/uL (4.8-10.8)
[2020-02-01 06:00] LABS: Anion Gap 11 mmol/L (10-20); BUN (Urea Nitrogen) 11 mg/dL (9.8-20.1); Calc. Creatinine Clearance 93 mL/min (70-130); Calcium 8.4 mg/dL (7.8-10.44); Carbon Dioxide 24 mmol/L (23-31); Chloride 106 mmol/L (98-107); Estimated GFR-MDRD Greater than 90; Glucose 88 mg/dL (83-110); Potassium 3.4 mmol/L (3.5-5.1); Sodium 138 mmol/L (136-145)
[2020-02-01] MEDS ORDERED: Enoxaparin Sodium 40 MG/0.4 ML SYRINGE SC SCH (09:00)
[2020-02-01] MEDS ORDERED: Hydrochlorothiazide 25 MG TAB PO SCH (09:00)
[2020-02-01] MEDS ORDERED: Bisoprolol Fumarate 5 MG TAB PO SCH (09:00)
[2020-02-01] MEDS ORDERED: Gabapentin 300 MG CAP PO SCH (09:00)
[2020-02-01] MEDS ORDERED: Prevnar 13-Val Conj/PF 0.5 ML SYRINGE IM ONE (09:00)
[2020-02-01] MEDS ORDERED: Potassium Chloride 20 MEQ TAB PO SCH (10:45)
[2020-02-01] MEDS ORDERED: Azithromycin 250 MG TAB PO SCH (14:30)
[2020-02-01 15:31] VITALS: BP 120/70; TEMP 98.4
[2020-02-01] MEDS ORDERED: Cefdinir 300 MG CAP PO SCH (21:00)
[2020-02-01] MEDS ORDERED: Simvastatin 5 MG TAB PO SCH (21:00)
[2020-02-01] MEDS ORDERED: cefTRIAXone\\ROCEPHIN 2 GM in Sodium Chloride 0.9% 100 ML IVPB SCH (23:00)
[2020-02-01] MEDS ORDERED: Azithromycin 500 MG in Sodium Chloride 0.9% 250 ML 250 ML IVPB SCH (23:59)
--- NOTE | 2020-02-02 03:03 | DIS ---
DATE OF ADMISSION: 01/31/2020 DATE OF DISCHARGE: 02/01/2020 DISCHARGE DIAGNOSES: 1. Community-acquired pneumonia, 2. Lactic acidosis 3. Hyponatremia, 4. Hypokalemia 6. Transaminitis. BRIEF HISTORY OF PRESENT ILLNESS: This is a 74-year-old female, with a past medical history of hypertension, recent laminectomy one month ago, who presented with a fever for the past 24 hours. Patient reported some mild cough, shortness of breath, and some pain on the right side of her chest. She was evaluated in the emergency room and underwent a chest x-ray, which showed a right suprahilar infiltrate. On lab work, she was noted to have a white count of 24.8 and a lactate of 3.1. She was admitted due to concerns for severe lactic acidosis and started on IV antibiotics. HOSPITAL COURSE: Community-acquired pneumonia: Patient received ceftriaxone and azithromycin in the ER. She did not require any oxygen while in the hospital. Her white blood cell count came down to 18.9. She has had no fever on the day of discharge. She has mild cough and minimal shortness of breath on exertion. She will be discharged on oral cefdinir and azithromycin to complete a 7-day course of antibiotics. She should have a repeat chest x-ray in 6 weeks. Anemia: Patient had a hemoglobin of 11.2. This is likely dilutional from IV fluids that she received. She should have a repeat CBC in a week with her Primary. Hypokalemia: Patient had a potassium of 3.4 on the day of discharge. She denied any nausea, vomiting, or diarrhea. This should be repeated as an outpatient. Lactic acidosis. Patient had a lactic acid of 3.1 on the . She was given 1 L fluid in the ER. Her lactic acid level came down to 1.4 on the day of discharge. Transaminitis: Patient had AST of 38. Rest of LFTs were normal. She denies any abdominal pain. Her LFTs can be repeated as an outpatient. DISCHARGE PHYSICAL EXAMINATION: VITAL SIGNS: Temperature 97.6, heart rate 80, respiratory rate 18, O2 saturation 98% on room air, and blood pressure 103/64. GENERAL: Patient is alert, awake, and oriented x3. CVS: Regular rate and rhythm, with no murmurs, rubs, or gallops. LUNGS: Clear to auscultation bilaterally. ABDOMEN: Positive bowel sounds, soft, nontender, and nondistended. EXTREMITIES: No edema. PERTINENT LABORATORY DATA: CBC, 01/30: White count was 24.8. CBC, 01/31: White blood cell count 18.9, hemoglobin 11.2, hematocrit 34.3, and platelet count of 222. BMP, 01/31: Potassium 3.4. Rest of BMP is normal. Lactic acid, 01/30: 3.1. Lactic acid, 01/31: 1.4. LFTs, 01/30: AST 38, ALT 36, and alk phos 70. CRP: 10.20. IMAGING: Chest x-ray, 01/30: Right suprahilar infiltrate. DISCHARGE CONDITION: Stable. ACTIVITY: As tolerated. DIET: Heart-healthy diet. DISCHARGE MEDICATIONS: New prescriptions: 1. Cefdinir 300 mg p.o. q.12 hours. 2. Azithromycin 250 mg p.o. daily. All other home medications were resumed. DISCHARGE INSTRUCTIONS: Patient should follow up with her PCP in a week and get a repeat chest x-ray in 6 weeks. She should have a repeat CBC to follow up her anemia and leukocytosis and repeat LFTs to follow up her transaminitis. Job ID: [id number] [facility]Jose
[2020-02-02] MEDS ORDERED: Azithromycin 250 MG TAB PO SCH (09:00)
== END 2020-02-01 17:18 | disposition home or self-care (01) ==
LOC: ERS 21:28 → SURG A 23:26
PROVIDERS: ADMIT Emergency Medicine; ATTEND Emergency Medicine
DX: A41.9 Sepsis, unspecified organism (principal); J15.9 Unspecified bacterial pneumonia; D64.9 Anemia, unspecified; E87.6 Hypokalemia; E87.2 Acidosis; R74.0 Nonspecific elevation of levels of transaminase and lactic acid dehydrogenase [LDH]; I10 Essential (primary) hypertension; E78.5 Hyperlipidemia, unspecified; K21.9 Gastro-esophageal reflux disease without esophagitis; G47.33 Obstructive sleep apnea (adult) (pediatric); M19.90 Unspecified osteoarthritis, unspecified site; F41.9 Anxiety disorder, unspecified; Z79.899 Other long term (current) drug therapy; Z88.2 Allergy status to sulfonamides
CPT/HCPCS: 71045; 80048; 80053; 83605 ×2; 85025 ×2; 85652; 86140; 87040; 96365; 96372; 96375; 97139 ×4; 99285; G0378 ×2; J0456; J0696; J1650; Q0162; 36415

== ENCOUNTER 2021-03-06 10:03 | Outpatient (CLI) | payer MEDICARE | END 2021-03-06 10:04 | disposition home or self-care (01) | LOC: BICMAMMO 10:03 | DX: Z12.31 Encounter for screening mammogram for malignant neoplasm of breast (principal); Z80.3 Family history of malignant neoplasm of breast; Z85.3 Personal history of malignant neoplasm of breast | CPT/HCPCS: 77063; 77067 ==